=== PATIENT | female | born 1960 | race Caucasian/White ===

== ENCOUNTER 2022-02-03 08:58 | Outpatient (CLI) | payer OTHER, SELFPAY ==
--- NOTE | 2022-02-03 09:15 | CRLHL7_ITS ---
For Patients: As a result of the Century Cures Act, medical imaging exams and procedure reports are released immediately into your electronic medical record. You may view this report before your referring provider. If you have questions, please contact your health care provider. BILATERAL SCREENING MAMMOGRAM WITH COMPUTER-AIDED DETECTION AND TOMOSYNTHESIS TECHNIQUE: CC and MLO views were obtained. These mammographic images have been obtained using full-field digital technique. These mammographic images were interpreted with the benefit of computer-aided detection. Breast Tomosynthesis was used in this interpretation. COMPARISON FILM: 01/28/21, 01/24/20, 01/05/19. FINDINGS: The breasts are heterogeneously dense, which may obscure small masses IMPRESSION: There is no radiographic evidence for malignancy. ASSESSMENT: BI-RADS Category 1: Negative RECOMMENDATION: Routine screening mammogram in 1 year. A lay language report of this examination will be provided to the patient. Mohan Jo M.D. Diagnostic Radiologist [email or web address] Transcribed: 4:05 pm DW/Dictated by: Mohan Jo MD @ 02/03/2022 10:20:00 AM (Electronically Signed)
== END 2022-02-03 08:59 | disposition home or self-care (01) ==
LOC: MAMMO 08:59
PROVIDERS: Visit Provider Obstetrics & Gynecology
DX: Z12.31 Encounter for screening mammogram for malignant neoplasm of breast (principal)
CPT/HCPCS: 77063; 77067

== ENCOUNTER 2022-02-20 07:55 | Outpatient (CLI) | payer OTHER, SELFPAY | END 2022-02-20 07:56 | disposition home or self-care (01) | PROVIDERS: Visit Provider Surgery | DX: Z12.11 Encounter for screening for malignant neoplasm of colon (principal); D17.5 Benign lipomatous neoplasm of intra-abdominal organs; K64.4 Residual hemorrhoidal skin tags; K57.30 Diverticulosis of large intestine without perforation or abscess without bleeding | CPT/HCPCS: 45378; 99153; J1200; J2250; J3010 ==

== ENCOUNTER 2023-02-09 10:00 | Outpatient (CLI) | payer OTHER, SELFPAY ==
--- NOTE | 2023-02-09 10:15 | CRLHL7_ITS ---
For Patients: As a result of the Century Cures Act, medical imaging exams and procedure reports are released immediately into your electronic medical record. You may view this report before your referring provider. If you have questions, please contact your health care provider. BILATERAL SCREENING MAMMOGRAM WITH COMPUTER-AIDED DETECTION AND TOMOSYNTHESIS TECHNIQUE: CC and MLO views were obtained. These mammographic images have been obtained using full-field digital technique. These mammographic images were interpreted with the benefit of computer-aided detection. Breast Tomosynthesis was used in this interpretation. COMPARISON FILM: 02/03/22, 01/28/21, 01/24/20 . FINDINGS: The breasts are heterogeneously dense, which may obscure small masses IMPRESSION: There is no radiographic evidence for malignancy. ASSESSMENT: BI-RADS Category 1: Negative RECOMMENDATION: Routine screening mammogram in 1 year. A lay language report of this examination will be provided to the patient. Mohan Jo M.D. Diagnostic Radiologist [email or web address] DSM/bhe be/Dictated by: Mohan Jo MD @ 02/09/2023 12:58:00 PM (Electronically Signed)
== END 2023-02-09 10:01 | disposition home or self-care (01) ==
LOC: MAMMO 10:02
PROVIDERS: Visit Provider Obstetrics & Gynecology
DX: Z12.31 Encounter for screening mammogram for malignant neoplasm of breast (principal); R92.2 Inconclusive mammogram
CPT/HCPCS: 77063; 77067

== ENCOUNTER 2023-02-19 14:46 | Outpatient (CLI) | payer OTHER, SELFPAY ==
--- NOTE | 2023-02-19 15:00 | CRLHL7_ITS ---
For Patients: As a result of the Century Cures Act, medical imaging exams and procedure reports are released immediately into your electronic medical record. You may view this report before your referring provider. If you have questions, please contact your health care provider. DXA BONE MINERAL DENSITY STUDY Current height (in): 69.0. Weight (lb): 118.0. Menopause age: 56. Ethnicity: White. Reason for exam: Osteoporosis. Screening. 1. Have you had a previous hip or vertebral fracture? No. 2. Have you had any fractures during your adult life which did not result from significant trauma (e.g., auto accident)? No. 3. Did either of your parents have a hip fracture? No. 4. Do you smoke? No. 5. Have you ever taken Glucocorticoids? No. 6. Do you have rheumatoid arthritis? No. 7. Do you have secondary osteoporosis? No. 8. Do you drink 3 or more alcoholic drinks per day? No. 9. Are you being treated for osteoporosis? Yes. 10. Have you ever taken any of the following medications: Actonel, Evista, Fosamax, Miacalcin, Reclast, Boniva, Forteo, HRT (i.e. estrogen/hormone therapy), Protelos, Prolia, Vitamin D, Calcium, other ??? please specify. ANSWER: Yes, Fosamax, vitamin D, calcium. 11. Do you have any of the following medical conditions: Anorexia or bulimia, asthma or emphysema, end stage renal disease, hyperparathyroidism, any seizure disorders, cancer, inflammatory bowel diseases, hysterectomy, other ??? please specify. ANSWER: No. 12. What was your maximum height (inches)? 69. 13. Do you perform weight bearing exercise regularly? Yes. 14. Do you regularly consume dairy products? Yes. 15. Do you drink caffeinated beverages? No. 16. At what age did your period start? 13. 17. Are you premenopausal? No. 18. How many full term pregnancies have you had? 0. 19. Have you ever missed your period for more than 6 months in a row (not including or menopause)? No. TECHNIQUE: Bone mineral density study was performed using the Infrafone. FINDINGS: The results of the study expressed as bone mineral density (BMD) are as follows: Lumbar spine L1 to L4: BMD: 0.665 g/cm2. T-score: -3.5. Z-score: -1.8. Neck Left: BMD: 0.512 g/cm2. T-score: -3.0. Z-score: -1.6. Right: BMD: 0.583 g/cm2. T-score: -2.4. Z-score: -1.0. Total Left: BMD: 0.671 g/cm2. T-score: -2.2. Z-score: -1.1. Right: BMD: 0.583 g/cm2. T-score: -2.4. Z-score: -1.0. IMPRESSION: Osteoporosis. *Comparison exams done prior to 11/2019 were performed on different unit, [employer]. COMPARISON: Compared with scan of 12/27/2020, the bone mineral density has increased by 0.1 percent at the spine and increased by 15.6 percent at the hip. Tyson Mcgovern M.D. Diagnostic/Nuclear Medicine Radiologist [email or web address] KELSY/[email or web address]: Transcribed: 7:58 am DW/Dictated by: Tyson Mcgovern MD @ 02/19/2023 3:30:00 PM (Electronically Signed)
== END 2023-02-19 14:47 | disposition home or self-care (01) ==
PROVIDERS: PCP Internal Medicine; Visit Provider Obstetrics & Gynecology
DX: Z13.820 Encounter for screening for osteoporosis (principal); M81.0 Age-related osteoporosis without current pathological fracture
CPT/HCPCS: 77080

== ENCOUNTER 2024-02-11 07:43 | Outpatient (CLI) | payer BC, SELFPAY ==
--- OUTSIDE RECORDS SUMMARY | 2024-02-12 11:09 | XMS_ITS | Clinical Summary ---
Author Organization [employer] [facility] Address [place], [place] [address] Care Team Providers Care Certified Medicine Aide Name Role Phone Makayla Berg MD Primary Care Prov ider Allergies Active Allergy Reactions Criticality Noted Date Comments Ampicillin Rash 02/15/2008 Sulfa (Sulfonamide Antibiotics) Rash 01/27 Medications Medication Sig Dispensed Refills Start Date End Date Status MINOCYCLINE 100 MG CAP take 1 capsule (100 mg) by oral route every 12 hours 0 02/15/2008 Active cyclobenzaprine (FLEXERIL) 10 mg tabletIndications:Thiago k contusion, right, initial encounter Take 1 tablet by mouth 3 times daily. 21 tablet 0 08/20/2015 Active Active Problems Problem Noted Date Diagnosed Date Acne 08/20/2015 Impaired fasting glucose 05/09/2008 Paresthesia 05/09/2008 S/P excision of fibroadenoma of breast 8 Overview: 1994, left breast Anxiety Immunizations Name Administration Dates Next Due AMB Influenza, IIV3 (Age >=3 years)(Flu Clinic [facility]) 04/02/2009 Influenza, IIV3 (Age >=3 years) 05/09/2008 Td (Age >=7 Years) 03/05/2000 Tdap 02/04/2013 Family History Medical History Relation Name Comments Good Health Brother 1 Osteoporosis Brother 2 Cancer-prostate Father 2000. dx at age 69 yrs old Cancer-breast Maternal Aunt mother twin s ister 61 yrs old Cancer-breast Maternal Grandmother 83 yrs Osteoporosis Mother Other Mother atrial fibrilla tion Cancer-breast Paternal Aunt 40's yrs old Cancer No Family History Cancer-colon No Family History Cancer-ovarian No Family History Relation Name Status Comments Brother 1 Brother 2 Father Maternal Aunt Maternal Grandmother Mother Paternal Aunt Social History Tobacco Use Types Packs/Day Years Used Date Smoking Tobacco: Never Smokeless Tobacco: Never Tobacco Cessation:Counseling Given: Yes Alcohol Use Standard Drinks/Week Comments Yes 0 (1 standard drink = 0.6 oz pur e alcohol) rare Sex and Gender Information Value Date Recorded Sex Assigned at Not on file Gender Identity Not on file Sexual Orientation Not on file Obstetrics History Para Term AB IAB SAB Ectopic Multiple Livin g Live Births 0 0 0 0 0 0 0 0 0 0 Last Filed Vital Signs Vital Sign Reading Time Taken Comments Blood Pressure 120/74 07/03/2016 4:29 PM LEATHER PATCHER Pulse 88 07/03/2016 4:29 PM LEATHER PATCHER Temperature 36.7 ??C (98.1 ??F) 08/20/2015 1 0:13 AM LEATHER PATCHER Respiratory Rate - - Oxygen Saturation 99% 07/03/2016 4:29 PM LEATHER PATCHER Inhaled Oxygen Concentration - - Weight 59.3 kg (130 lb 12.8 oz) 07/03/2016 4:29 PM LEATHER PATCHER Height 174 cm (5' 8.5) 06/03/2016 4:41 PM LEATHER PATCHER Body Mass Index 19.6 06/03/2016 4:41 PM LEATHER PATCHER Plan of Treatment Health Maintenance Due Date Last Done Comments Depression screening for age 12+ 1971 HIV for age 15-65 10/15/1974 Hepatitis C screening for age 18-79 10/15/1977 Colonoscopy through age 75 10/15/2004 Zoster (shingles) series for age 50+ (1 of 2) 10/15/2009 BMI (ht and wt on same day) for age 18+ 06/03/2017 06/03/2016, 08/20/2015 Lipids for age 45-75 02/04/2018 02/04/2013, 03/23/20 Mammogram for age 45-75 01/28/2022 01/29/20 21, 01/05/2019, 01/04/2018, Additional history exists Tetanus booster 02/04/2023 02/04/2013, 03/05/2000 COVID-19 vaccine series (2022-24 season) 2023 Pap test for age 21-65 12/22/2023 1, 12/21/2020, 04/02/2016, Additional history exists Influenza for age 50-64 02/28/2024 04/09/20 11 (Completed outside of [facility]), 04/02/2009, 05/09/2008 Tdap Completed 02/04/2013 Pneumococcal series for age 6-64 Aged Out No longer eligible based on patient's age to complete this topic Procedures Procedure Name Priority Date/Time Associated Diagnosis Comments SCAN-MAMMOGRAPHY REPORT 01/28/2021 12:00 AM CDT BAKERY ASSISTANT THIN PREP PAP SCREEN IMAGED Routine 12/21/2020 9:30 AM CDT LIPID PANEL W REFLEX MEASURED LDL Routine 02/04/2013 9:17 AM CDT Lipid screening from Last 3 Months or Most Recently Relevant to Health Maintenance Results * SCAN-MAMMOGRAPHY REPORT (01/28/2021 12:00 AM CDT) Anatomical Region Laterality Modality Other Scanner OTHER * BAKERY ASSISTANT THIN PREP PAP SCREEN IMAGED (12/21/2020 9:30 AM CDT) Case Report Gynecologic Cytology Report ? Case: [id number] ? Authorizing Provider: ??Makayla Berg ?Collected: ? 12/21/2020 0930 ? MD Alcira ? Ordering Location: ? [facility] ?Received: ?12/24/2020 0810 ? First Screen: ?Adriana Villalobos ? Specimen: ?BAKERY ASSISTANT ThinPrep Vial Screening, Cervical/Vaginal ? 01/01/2021 11:45 AM [facility] INTERPRETATION/ RESULT NEGATIVE FOR INTRAEPITHELIAL LESION OR MALIGNANCY (NIL) (none) 01/01/2021 11:45 AM [facility] IMEN ADEQUACY Satisfactory for evaluation Endocervical cells cannot be evaluated due to severe atrophy 01/01/2021 11:45 AM [facility] HPV REQUEST HPV and PAP 01/01/2021 11:45 AM [facility] Date of LMP 01/01/2021 11:45 AM [facility] Comment:NA Menstrual Status Postmenopausal 01/01/2021 11:45 AM T [facility] Additional Information 01/01/2021 11:45 AM [facility] Comment: Interpreted at [facility], Central Laboratory - [address], [place] [address] Automated Review Successful 01/01/2021 11:45 AM [facility] Comment:Specimen processed s uccessfully by automated community development worker device, ThinPrep Imaging System, [employer] ANCILLARY TESTING BAKERY ASSISTANT HPV Ordered, Please see separate report 01/01/2021 11:45 AM CDT [facility] Note The pap test is a screening technique, not a diagnostic procedure. It is used primarily to screen for squamous cancers and precursor lesions. Published studies have shown that it is subject to both false negative and false positive results. The pap test should not be used as the sole means to diagnose or exclude pre-malignant and malignant lesions. 01/01/2021 11:45 AM CDT [facility] Other (Cervical/Vagina l) 12/21/2020 9:30 AM CDT 12/24/2020 8:10 AM CDT Makayla Berg MD PATHOLOGY/ [facility] [address] [place] [address], * LIPID PANEL W REFLEX MEASURED LDL (02/04/2013 9:17 AM CDT) CHOLESTEROL,TOTAL 177 100 - 199 mg/dL 02/04/2013 9:54 AM T [facility] TRIGLYCERIDES 79 <150 mg/dL 02/04/2013 9:54 AM [facility] HDL CHOLESTEROL 59 >40 mg/dL 3 9:54 AM T [facility] NON-HDL CHOLESTEROL 118 <145 mg/dl 02/04/2013 9:54 AM [facility] CHOL/HDL RATIO 3.00 <4.50 02/04/2013 9:54 AM [facility] LDL CHOLESTEROL 102 <=130 mg/dL 02/04/2013 9:54 AM T [facility] PATIENT STATUS FASTING 02/04/2013 9:54 AM T [facility] Blood specimen (specimen) BLOOD SPECIMEN / Unknown Venipuncture / Unknown 02/04/2013 9:17 AM CDT 02/04/2013 9:17 AM CDT Annemarie Marcano MD CHEMISTRY [facility] [address], [place] [id number] from Last 3 Months or Most Recently Relevant to Health Maintenance Care Teams Certified Medicine Aide Relationship Specialty Start Date End Date Makayla Berg MD [address] [place] [address] PCP - General Obstetrics and Gynecology 02/11/18
== END 2024-02-11 07:44 | disposition home or self-care (01) ==
LOC: NFLDREF 02-12 11:07
PROVIDERS: PCP Internal Medicine; Referring Provider Internal Medicine; Visit Provider Internal Medicine
DX: Z13.220 Encounter for screening for lipoid disorders (principal); Z13.29 Encounter for screening for other suspected endocrine disorder; Z13.1 Encounter for screening for diabetes mellitus
CPT/HCPCS: 80061; 82947; 84443

== ENCOUNTER 2024-02-15 09:00 | Outpatient (CLI) | payer BC, SELFPAY ==
--- OUTSIDE RECORDS SUMMARY | 2024-02-15 09:02 | XMS_ITS | Clinical Summary ---
Author Organization [employer] [facility] Address [place], [place] [address] Care Team Providers Care Feeder Catcher Tobacco Name Role Phone Makayla Berg MD Primary [...] Comments Blood Pressure 120/74 07/03/2016 4:29 PM CREAM DIPPER Pulse 88 07/03/2016 4:29 PM CREAM DIPPER Temperature 36.7 ??C (98.1 ??F) 08/20/2015 1 0:13 AM CREAM DIPPER Respiratory Rate - - Oxygen Saturation 99% 07/03/2016 4:29 PM CREAM DIPPER Inhaled Oxygen Concentration - - Weight 59.3 kg (130 lb 12.8 oz) 07/03/2016 4:29 PM CREAM DIPPER Height 174 cm (5' 8.5) 06/03/2016 4:41 PM CREAM DIPPER Body Mass Index 19.6 06/03/2016 4:41 PM CREAM DIPPER Plan of Treatment Health Maintenance Due Date [...] 50-64 02/28/2024 04/09/20 11 (Completed outside of [facility]), 04/02/2009, 05/09/2008 Tdap Completed 02/04/2013 Pneumococcal series for age 6-64 Aged Out No longer eligible based on patient's age to complete this topic Procedures Procedure Name Priority Date/Time Associated Diagnosis Comments SCAN-MAMMOGRAPHY REPORT 01/28/2021 12:00 AM CDT GEOTHERMAL ELECTRICAL ENGINEER THIN PREP PAP SCREEN IMAGED Routine 12/21/2020 9:30 AM CDT LIPID PANEL W REFLEX MEASURED LDL Routine 02/04/2013 9:17 AM CDT Lipid screening from Last 3 Months or Most Recently Relevant to Health Maintenance Results * SCAN-MAMMOGRAPHY REPORT (01/28/2021 12:00 AM CDT) Anatomical Region Laterality Modality Other Scanner OTHER * GEOTHERMAL ELECTRICAL ENGINEER THIN PREP PAP SCREEN IMAGED (12/21/2020 9:30 AM CDT) Case Report Gynecologic Cytology Report ? Case: [id number] ? Authorizing Provider: ??Makayla Berg ?Collected: ? 12/21/2020 0930 ? MD Alcira ? Ordering Location: ? [facility] ?Received: ?12/24/2020 0810 ? First Screen: ?Adriana Villalobos ? Specimen: ?GEOTHERMAL ELECTRICAL ENGINEER ThinPrep Vial Screening, Cervical/Vaginal ? 01/01/2021 11:45 AM [facility] INTERPRETATION/ RESULT NEGATIVE FOR INTRAEPITHELIAL LESION OR MALIGNANCY (NIL) (none) 01/01/2021 11:45 AM [facility] IMEN ADEQUACY Satisfactory for evaluation Endocervical cells cannot be evaluated due to severe atrophy 01/01/2021 11:45 AM [facility] HPV REQUEST HPV and PAP 01/01/2021 11:45 AM [facility] Date of LMP 01/01/2021 11:45 AM [facility] Comment:NA Menstrual Status Postmenopausal 01/01/2021 11:45 AM T [facility] Additional Information 01/01/2021 11:45 AM [facility] Comment: Interpreted at [facility], Central Laboratory - [address], [place] [address] Automated Review Successful 01/01/2021 11:45 AM [facility] Comment:Specimen processed s uccessfully by automated guideman device, ThinPrep Imaging System, [employer] ANCILLARY TESTING GEOTHERMAL ELECTRICAL ENGINEER HPV Ordered, Please see separate report 01/01/2021 11:45 AM CDT [facility] Note The pap test is a [...] and malignant lesions. 01/01/2021 11:45 AM CDT [facility] Other (Cervical/Vagina l) 12/21/2020 9:30 AM CDT 12/24/2020 8:10 AM CDT Makayla Berg MD [facility] [address] [place] [address], * LIPID PANEL W REFLEX MEASURED LDL (02/04/2013 9:17 AM CDT) CHOLESTEROL,TOTAL 177 100 - 199 mg/dL 02/04/2013 9:54 AM T [facility] TRIGLYCERIDES 79 <150 mg/dL 02/04/2013 9:54 AM [facility] HDL CHOLESTEROL 59 >40 mg/dL 3 9:54 AM T [facility] NON-HDL CHOLESTEROL 118 <145 mg/dl 02/04/2013 9:54 AM [facility] CHOL/HDL RATIO 3.00 <4.50 02/04/2013 9:54 AM [facility] LDL CHOLESTEROL 102 <=130 mg/dL 02/04/2013 9:54 AM T [facility] PATIENT STATUS FASTING 02/04/2013 9:54 AM T [facility] Blood specimen (specimen) BLOOD SPECIMEN / Unknown Venipuncture / Unknown 02/04/2013 9:17 AM CDT 02/04/2013 9:17 AM CDT Annemarie Marcano MD CHEMISTRY [facility] [address] [place], [place] [id number] from Last 3 Months or Most Recently Relevant to Health Maintenance Care Teams Feeder Catcher Tobacco Relationship Specialty Start Date End Date Makayla Berg MD [address] [place] [address] PCP - General Obstetrics and Gynecology 02/11/18
--- NOTE | 2024-02-15 09:15 | CRLHL7_ITS ---
For Patients: As a result of the Century Cures Act, medical imaging exams and procedure reports are released immediately into your electronic medical record. You may view this report before your referring provider. If you have questions, please contact your health care provider. BILATERAL SCREENING MAMMOGRAM WITH COMPUTER-AIDED DETECTION AND TOMOSYNTHESIS TECHNIQUE: CC and MLO views were obtained. These mammographic images have been obtained using full-field digital technique. These mammographic images were interpreted with the benefit of computer-aided detection. Breast Tomosynthesis was used in this interpretation. COMPARISON FILM: 02/09/23, 02/03/22, 01/28/21. FINDINGS: The breasts are heterogeneously dense, which may obscure small masses. IMPRESSION: There is no radiographic evidence for malignancy. ASSESSMENT: BI-RADS Category 1: Negative RECOMMENDATION: Routine screening mammogram in 1 year. A lay language report of this examination will be provided to the patient. Mohan Jo M.D. Diagnostic Radiologist [email or web address] SP/Dictated by: Mohan Jo MD @ 02/15/2024 10:08:00 AM (Electronically Signed)
== END 2024-02-15 09:01 | disposition home or self-care (01) ==
PROVIDERS: PCP Internal Medicine; Visit Provider Obstetrics & Gynecology
DX: Z12.31 Encounter for screening mammogram for malignant neoplasm of breast (principal); R92.2 Inconclusive mammogram
CPT/HCPCS: 77063; 77067

== ENCOUNTER 2025-02-13 13:47 | Outpatient (CLI) | payer MEDICARE, BC, SELFPAY | END 2025-02-13 13:48 | disposition home or self-care (01) | PROVIDERS: PCP Internal Medicine; Visit Provider Internal Medicine | DX: M81.0 Age-related osteoporosis without current pathological fracture (principal) | CPT/HCPCS: 80048; 82306 ==

== ENCOUNTER 2025-02-20 09:00 | Outpatient (CLI) | payer MEDICARE, BC, SELFPAY ==
--- NOTE | 2025-02-20 09:15 | CRLHL7_ITS ---
For Patients: As a result of the Century Cures Act, medical imaging exams and procedure reports are released immediately into your electronic medical record. You may view this report before your referring provider. If you have questions, please contact your health care provider. INDICATION: BILATERAL SCREENING MAMMOGRAM, ASYMPTOMATIC 64 Y/O FEMALE COMPARISON: 02/15/2024, 02/09/2023, 02/03/2022 TECHNIQUE: Digital mammogram in CC and MLO projections including computer-aided detection (CAD) and tomosynthesis. BREAST COMPOSITION: The breasts are heterogeneously dense, which may obscure small masses. FINDINGS: No suspicious findings. ASSESSMENT: BI-RADS 1 Negative RECOMMENDATION: Annual screening mammogram. A lay language report of this examination will be provided to the patient. Dictated by: Mohan Jo MD @ 02/21/2025 09:21:10 (Electronically Signed)
== END 2025-02-20 09:01 | disposition home or self-care (01) ==
LOC: MAMMO 09:02
PROVIDERS: PCP Internal Medicine; Visit Provider Obstetrics & Gynecology
DX: Z12.31 Encounter for screening mammogram for malignant neoplasm of breast (principal); R92.333 Mammographic heterogeneous density, bilateral breasts
CPT/HCPCS: 77063; 77067

== ENCOUNTER 2025-02-20 09:47 | Outpatient (CLI) | payer MEDICARE, BC, SELFPAY ==
[2025-02-22 01:46] LABS: HPV Source Cervical
[2025-02-23 14:49] LABS: Pap Test Digital Imaging Done
== END 2025-02-20 09:48 | disposition home or self-care (01) ==
PROVIDERS: PCP Internal Medicine; Visit Provider Obstetrics & Gynecology
DX: Z12.4 Encounter for screening for malignant neoplasm of cervix (principal); Z11.51 Encounter for screening for human papillomavirus (HPV)
CPT/HCPCS: 87624; 87625; 88141; 88142; 88175